=== PATIENT | female | born 1995 | race Caucasian/White ===

== ENCOUNTER → 2018-08-11 | Outpatient (CLI) | payer OTHER ==
[~2018-08-11] MED LIST: ALBU90OI INH; BENZ100A PO; Prednisone20 MG PO; Zofran Odt8 MG SL
[2018-08-13 08:07] LABS: HIV SCREEN 4TH GENERATION WRFX Non Reactive (Non Reactive)
[2018-08-13 10:06] LABS: HBSAG SCREEN Negative (Negative); HCV ANTIBODY <0.1 (0.0-0.9)
== END | disposition home or self-care (01) ==
LOC: LAB SHORT 13:10 → LAB EV 13:10
PROVIDERS: Physician Assistant Surgical
DX: Z20.9 Contact with and (suspected) exposure to unspecified communicable disease (principal)
CPT/HCPCS: 86317; 86803; 87340; 87389

== ENCOUNTER → 2018-09-22 | Outpatient (CLI) | payer OTHER ==
[2018-09-24 09:07] LABS: HIV SCREEN 4TH GENERATION WRFX Non Reactive (Non Reactive)
== END | disposition home or self-care (01) ==
LOC: LAB EV 15:37 → LAB SHORT 15:37
PROVIDERS: Physician Assistant Surgical
DX: Z20.9 Contact with and (suspected) exposure to unspecified communicable disease (principal)
CPT/HCPCS: 86803; 87389

== ENCOUNTER → 2018-11-01 | Outpatient (CLI) | payer OTHER ==
[2018-11-03 01:08] LABS: HBSAG SCREEN Negative (Negative); HCV ANTIBODY 0.1 (0.0-0.9); HIV SCREEN 4TH GENERATION WRFX Non Reactive (Non Reactive)
== END | disposition home or self-care (01) ==
LOC: LAB EV 14:11 → LAB SHORT 14:11
PROVIDERS: Physician Assistant Medical
DX: Z20.9 Contact with and (suspected) exposure to unspecified communicable disease (principal)
CPT/HCPCS: 84460; 86317; 86803; 87340; 87389

== ENCOUNTER → 2018-11-08 | Outpatient (CLI) | payer OTHER ==
[2018-11-09 07:14] LABS: HIV SCREEN 4TH GENERATION WRFX Non Reactive (Non Reactive)
== END | disposition home or self-care (01) ==
LOC: LAB SHORT 12:01 → LAB EV 12:01
PROVIDERS: Physician Assistant
DX: Z20.9 Contact with and (suspected) exposure to unspecified communicable disease (principal)
CPT/HCPCS: 87389

== ENCOUNTER → 2019-03-06 | Outpatient (CLI) | payer OTHER ==
[2019-03-09 04:07] LABS: CHLAMYDIA TRACHOMATIS, NAA Negative (Negative); NEISSERIA GONORRHOEAE, NAA Negative (Negative)
== END | disposition home or self-care (01) ==
LOC: LAB SHORT 17:57 → LAB EV 17:57
PROVIDERS: Physician Assistant
DX: R10.2 Pelvic and perineal pain (principal)
CPT/HCPCS: 87070; 87205; 87491; 87591; G0145

== ENCOUNTER → 2019-07-24 | Outpatient (CLI) | payer OTHER ==
[2019-07-28 06:08] LABS: HSV-1 DNA Negative (Negative); HSV-2 DNA Positive (Negative)
[2019-07-28 09:07] LABS: CHLAMYDIA BY NAA Negative (Negative); GONOCOCCUS BY NAA Negative (Negative); TRICH VAG BY NAA Negative (Negative)
== END | disposition home or self-care (01) ==
LOC: LAB SHORT 18:55 → LAB EV 18:55
PROVIDERS: Physician Assistant Medical
DX: N76.0 Acute vaginitis (principal)
CPT/HCPCS: 87491; 87529; 87591; 87661

== ENCOUNTER → 2019-07-30 | Outpatient (CLI) | payer OTHER | END | disposition home or self-care (01) | LOC: PLD 08:34 → LAB SHORT 08:34 | DX: D22.5 Melanocytic nevi of trunk (principal) | CPT/HCPCS: 88305 ==

== ENCOUNTER → 2019-12-27 | Outpatient (CLI) | payer OTHER ==
[2019-12-28 23:09] LABS: HIV SCREEN 4TH GENERATION WRFX Non Reactive (Non Reactive)
[2019-12-29 00:09] LABS: HBSAG SCREEN Negative (Negative); HCV ANTIBODY 0.1 (0.0-0.9)
== END | disposition home or self-care (01) ==
LOC: LAB EV 12:09 → LAB SHORT 12:09
PROVIDERS: Family Medicine
DX: Z20.9 Contact with and (suspected) exposure to unspecified communicable disease (principal)
CPT/HCPCS: 84460; 86317; 86803; 87340; 87389

== ENCOUNTER → 2025-01-28 | Outpatient (CLI) | payer BC | LOC: LAB 14:45 → LAB SHORT 14:45 | DX: O09.90 Supervision of high risk pregnancy, unspecified, unspecified trimester (principal); Z3A.00 Weeks of gestation of pregnancy not specified | CPT/HCPCS: 87081; 87150 ==

== ENCOUNTER → 2025-02-13 | Outpatient (CLI) | payer BC, OTHER ==
[2025-02-16 04:24] LABS: HSV SUBTYPE SOURCE Genital
== END ==
LOC: LAB SHORT 12:12 → LAB 12:12
PROVIDERS: Obstetrics & Gynecology
DX: B00.9 Herpesviral infection, unspecified (principal)
CPT/HCPCS: 87529

== ENCOUNTER 2025-02-20 19:01 | Inpatient (IN) | payer BC, OTHER ==
[2025-02-20] VITALS (7 sets, daily range): BP systolic 115–132; BP diastolic 63–82
[~2025-02-20] VITALS: Ht 167.6 cm; Wt 111.8 kg
[2025-02-20] MEDS ORDERED: FentaNYL 2mcg/ml-Bup 0.1% Epd 250 ML EPI PRN (19:20)
[2025-02-20] MEDS ORDERED: Carboprost Tromethamine 250 MCG/ML 1ML Amp IM PRN (19:20)
[2025-02-20] MEDS ORDERED: ePHEDrine Sulfate 50 MG/ML 1ML Injection XX PRN (19:20)
[2025-02-20] MEDS ORDERED: OXYTOCIN/RINGER'S LACTATE 500 ML IV PRN ×2 (19:20→19:25)
[2025-02-20] MEDS ORDERED: Oxytocin 10 Unit / ML Vial IM PRN (19:20)
[2025-02-20] MEDS ORDERED: Methylergonovine Maleate 0.2MG / ML 1ML Amp IM PRN (19:20)
[2025-02-20] MEDS ORDERED: Ondansetron HCl 2 MG / ML 2ML Vial IV PRN (19:25)
[2025-02-20] MEDS ORDERED: FentaNYL Citrate 50 MCG/ML 2 ML Injection IV PRN (19:30)
[2025-02-20] MEDS ORDERED: Tranexamic Acid 100 ML IV SCH (19:45)
[2025-02-20 20:01] LABS: BASOPHILS ABSOLUTE AUTO 0.02 K/mm3 (0.00-0.23); BASOPHILS PERCENT AUTO 0 % (0-2); EOSINOPHILS ABSOLUTE AUTO 0.03 K/mm3 (0.00-0.68); EOSINOPHILS PERCENT AUTO 0 % (0-6); Hematocrit 32.2 % (33.0-51.0); Hemoglobin 11.1 g/dL (11.5-16.0); IMMATURE GRAN ABSOLUTE AUTO 0.18 K/mm3 (0.00-0.10); IMMATURE GRAN PERCENT AUTO 2 % (0-1); LYMPHOCYTES ABSOLUTE AUTO 1.54 K/mm3 (0.84-5.20); LYMPHOCYTES PERCENT AUTO 14 % (21-46); MONOCYTES ABSOLUTE AUTO 0.50 K/mm3 (0.16-1.47); MONOCYTES PERCENT AUTO 5 % (4-13); Mean Corpuscular HGB Conc 34.5 g/dL (31.5-36.5); Mean Corpuscular Volume 86 fL (80-100); NEUTROPHILS ABSOLUTE AUTO 8.64 K/mm3 (1.96-9.15); NEUTROPHILS PERCENT AUTO 79 % (41-73); NRBC ABSOLUTE 0.00 K/mm3 (0.00-0.02); NRBC Auto 0.0 /100 WBC (0.0-0.2); Platelet Count 211 K/mm3 (150-400); RDW Coefficient Variation 14.6 % (11.7-14.2); RDW Standard Deviation 45.9 fL (35.1-46.3)
[2025-02-20] MEDS ORDERED: VALA500 PO (20:06)
[2025-02-20] MEDS ORDERED: PRENATAL TABLE1 EAC2 PO (20:07)
[2025-02-20] MEDS ORDERED: NS 250 ML IV PRN (21:10)
[2025-02-21] VITALS (39 sets, daily range): BP systolic 92–150; BP diastolic 52–90
[2025-02-21] MEDS ORDERED: OXYTOCIN/RINGER'S LACTATE 500 ML IV SCH (13:10)
[2025-02-21] MEDS ORDERED: Benzocaine Topical Anesthetic Spray 60GM TOP PRN (13:10)
[2025-02-21] MEDS ORDERED: Rho(D) Immune Globulin 300 MCG / SYR IM ONE (13:10)
[2025-02-21] MEDS ORDERED: Witch Hazel/Glycerin PADS TOP PRN (13:10)
[2025-02-21] MEDS ORDERED: Methylergonovine Maleate 0.2MG / ML 1ML Amp IM PRN (13:15)
[2025-02-21] MEDS ORDERED: Ketorolac Tromethamine 30mg Vial IV PRN (13:15)
--- NOTE | 2025-02-21 18:38 | NUR ---
02/21/25 1730 pt up to bathroom c/o moderate pain with that has not lessened much with tylenol, ice pack to perineum, assisted pt with pad change, noted only smallamout of lochia. pt requesting something a little stronger that will help with cramping
[2025-02-22 04:19] VITALS: BP 113/64
[2025-02-22 07:55] VITALS: BP 130/78
[2025-02-22] MEDS ORDERED: Prenatal Vit/FE Fumarate/FA 1 Tab PO SCH ×2 (09:00)
== END 2025-02-22 14:00 | disposition home or self-care (01) | DRG 806 ==
LOC: OBS 19:01 → BC 19:14
PROVIDERS: Obstetrics & Gynecology; ADMIT Obstetrics & Gynecology
PROC: 10E0XZZ Delivery of Products of Conception, External Approach (ICD-10-PCS; principal; 2025-02-21)
PROC: 3E0P7VZ Introduction of Hormone into Female Reproductive, Via Natural or Artificial Opening (ICD-10-PCS; 2025-02-21)
PROC: 3E0R3BZ Introduction of Anesthetic Agent into Spinal Canal, Percutaneous Approach (ICD-10-PCS; 2025-02-21)
PROC: 00HU33Z Insertion of Infusion Device into Spinal Canal, Percutaneous Approach (ICD-10-PCS; 2025-02-21)
PROC: 0HQ9XZZ Repair Perineum Skin, External Approach (ICD-10-PCS; 2025-02-21)
PROC: 0HQ9XZZ Repair Perineum Skin, External Approach (ICD-10-PCS; 2025-02-21)
DX: O35.19X0 Maternal care for (suspected) chromosomal abnormality in fetus, other chromosomal abnormality, not applicable or unspecified (principal); O98.513 Other viral diseases complicating pregnancy, third trimester; Z37.0 Single live birth; O70.0 First degree perineal laceration during delivery; O36.63X0 Maternal care for excessive fetal growth, third trimester, not applicable or unspecified; Z3A.39 39 weeks gestation of pregnancy
CPT/HCPCS: 36415; 51702; 85025; 86850; 86900; 86901; 86923; A9270; J1885; J2590; J7120

== ENCOUNTER → 2025-04-09 | Outpatient (CLI) | payer BC, OTHER ==
[~2025-04-09] MED LIST changes: +PRENATAL TABLE1 EAC2 PO; +VALA500 PO
== END ==
LOC: LAB SHORT 15:50 → LAB 15:50
PROVIDERS: Obstetrics & Gynecology
DX: Z01.419 Encounter for gynecological examination (general) (routine) without abnormal findings (principal)
CPT/HCPCS: G0145